=== PATIENT | male | born 1995 | race Caucasian/White ===

== ENCOUNTER 2019-08-05 06:45 | Day surgery (SDC) | payer OTHER, MEDICAID ==
[~2019-08-05] VITALS: Ht 172.7 cm; Wt 125.4 kg
[~2019-08-05 06:45] MED LIST: RINGERS SOLUTION,LACTATED 1,000 ML IV ONE
[2019-08-05] MEDS ORDERED: RINGERS SOLUTION,LACTATED 1,000 ML IV ONE ×2 (06:46→09:42)
[2019-08-05 08:46] LABS: BASOPHILS % (AUTO) 0.4 % (0.0-2.0); EOSINOPHILS % (AUTO) 2.9 % (1.0-6.0); HEMATOCRIT 49.3 % (41-53); HEMOGLOBIN 16.7 g/dL (13.5-17.5); LYMPHOCYTES # (AUTO) 4.1 K/uL (1.0-4.8); LYMPHOCYTES % (AUTO) 35.3 % (22.0-44.0); MEAN CORPUSCULAR HEMOGLOBIN 27.9 pg (26.0-34.0); MEAN CORPUSCULAR HGB CONC 33.9 G/dL (31.0-37.0); MEAN CORPUSCULAR VOLUME 82 fL (80-100); MONOCYTES # (AUTO) 1.1 K/uL (0.1-1.0); MONOCYTES % (AUTO) 9.2 % (2.0-9.0); NEUTROPHILS # (AUTO) 6.1 K/uL (1.8-7.7); NEUTROPHILS % (AUTO) 52.2 % (40.0-70.0); PLATELET COUNT (AUTO) 258 K/uL (150-450); RED CELL DISTRIBUTION WIDTH 13.7 % (11.5-14.5)
[2019-08-05 08:53] LABS: PROTHROMBIN TIME 10.2 SEC (9.4-11.6)
[2019-08-05 09:00] LABS: ANION GAP 14 mmol/L (8-16); CALCIUM, TOTAL 9.9 mg/dL (8.8-10.5); CARBON DIOXIDE 25 mmol/L (22-29); CHLORIDE 101 mmol/L (98-107); CREATININE 1.03 mg/dL (0.60-1.30); GLOMERULAR FILTR. RATE CALC > 60 mL/min (>60); GLUCOSE,RANDOM 169 mg/dL (70-110); POTASSIUM 3.2 mmol/L (3.5-5.1); SODIUM SERUM 140 mmol/L (136-145); UREA NITROGEN, BLOOD 12 mg/dL (7-18)
[2019-08-05 09:04] LABS: ALANINE AMINOTRANSFERASE 105 U/L (12-78); ALBUMIN 4.7 g/dL (3.4-5.0); ALKALINE PHOSPHATASE 63 U/L (46-116); ASPARTATE AMINOTRANSFERASE 50 U/L (15-37); BILIRUBIN,TOTAL 1.4 mg/dL (0.1-1.0)
[2019-08-05] MEDS ORDERED: AMPICILLIN SODIUM 1 GM/VIAL ONE ×2 (09:06)
[2019-08-05] MEDS ORDERED: HYDROmorphone 2 MG/ML SYRINGE IVP PRN (09:45)
[2019-08-05] MEDS ORDERED: MEPERIDINE-PF 25 MG/ML VIAL IVP PRN (09:45)
[2019-08-05] MEDS ORDERED: FentaNYL CITRATE-PF 100 MCG/2 ML VIAL IVP PRN (09:45)
[2019-08-05] MEDS ORDERED: GLYCOPYRROLATE 0.2 MG/ML VIAL IM ONE (12:00)
[2019-08-05] MEDS ORDERED: DEXAMETHASONE SOD PHOS 4 MG/ML VIAL IVP ONE (12:00)
[2019-08-05] MEDS ORDERED: METOCLOPRAMIDE HCL 5 MG/ML 2 ML VIAL IVP ONE (12:00)
[2019-08-05] MEDS ORDERED: ONDANSETRON HCL 4 MG/2 ML VIAL IVP ONE (12:00)
[2019-08-05] MEDS ORDERED: NEOSTIGMINE METHYLSULFATE 1 MG/ML 10 ML VIAL IVP ONE (12:00)
[2019-08-05] MEDS ORDERED: PROPOFOL 1% 20 ML VIAL IVP ONE (12:00)
[2019-08-05] MEDS ORDERED: KETAMINE HCL 50 MG/ML 10 ML VIAL IVP ONE (12:00)
[2019-08-05] MEDS ORDERED: FentaNYL CITRATE-PF 100 MCG/2 ML VIAL IVP ONE (12:00)
[2019-08-05] MEDS ORDERED: MIDAZOLAM HCL 2 MG/2 ML VIAL IVP ONE (12:00)
[2019-08-05] MEDS ORDERED: ROCURONIUM BROMIDE 10 MG/ML 5 ML VIAL IVP ONE (12:00)
[2019-08-05] MEDS ORDERED: OXYGEN THERAPY IH SCH (20:00)
== END 2019-08-05 12:05 | disposition home or self-care (01) ==
LOC: SURGERY 06:45
PROVIDERS: ATTEND Dentist General Practice
DX: K05.30 Chronic periodontitis, unspecified (principal); K03.6 Deposits [accretions] on teeth; E66.9 Obesity, unspecified; F79 Unspecified intellectual disabilities; F84.0 Autistic disorder; F99 Mental disorder, not otherwise specified; Z79.899 Other long term (current) drug therapy; Z98.890 Other specified postprocedural states
CPT/HCPCS: 36415; 41899; 71045; 80053; 85025; 85610; 85730; 93005; J0290; J1100; J2250; J2405; J2704; J2765; J3010; J3490 ×3; J7120

== ENCOUNTER 2022-12-26 06:06 | Day surgery (SDC) | payer OTHER ==
[~2022-12-26] VITALS: Ht 172.7 cm; Wt 125.4 kg
[2022-12-26] MEDS ORDERED: FentaNYL CITRATE PF 100 MCG/2 ML VIAL IVP ONE (06:07)
[2022-12-26] MEDS ORDERED: DEXAMETHASONE SOD PHOS 4 MG/ML VIAL IVP ONE (06:07)
[2022-12-26] MEDS ORDERED: MIDAZOLAM HCL 2 MG/2 ML VIAL IVP ONE (06:07)
[2022-12-26] MEDS ORDERED: ONDANSETRON HCL 4 MG/2 ML VIAL IVP ONE (06:07)
[2022-12-26] MEDS ORDERED: ROCURONIUM BROMIDE 10 MG/ML 5 ML VIAL IVP ONE (06:07)
[2022-12-26] MEDS ORDERED: PROPOFOL 1% 20 ML VIAL IVP ONE (06:07)
[2022-12-26] MEDS ORDERED: LIDOCAINE/PF 2% 5 ML VIAL IM ONE (06:07)
[2022-12-26] MEDS ORDERED: RINGERS SOLUTION,LACTATED 1,000 ML IV ONE ×2 (06:30→07:30)
[2022-12-26 06:52] LABS: COVID AG,FIA SOURCE NASAL SWAB
[2022-12-26] MEDS ORDERED: AMPICILLIN SODIUM 2 GM/NS 100 ML IV ONE (07:51)
[2022-12-26 07:54] LABS: BASOPHILS % (AUTO) 0.5 % (0.0-2.0); EOSINOPHILS % (AUTO) 2.2 % (1.0-6.0); HEMATOCRIT 43.9 % (41-53); HEMOGLOBIN 15.3 g/dL (13.5-17.5); LYMPHOCYTES # (AUTO) 1.9 K/uL (1.0-4.8); LYMPHOCYTES % (AUTO) 29.3 % (22.0-44.0); MEAN CORPUSCULAR HEMOGLOBIN 28.4 pg (26.0-34.0); MEAN CORPUSCULAR HGB CONC 34.9 G/dL (31.0-37.0); MEAN CORPUSCULAR VOLUME 81 fL (80-100); MONOCYTES # (AUTO) 0.7 K/uL (0.1-1.0); MONOCYTES % (AUTO) 9.8 % (2.0-9.0); NEUTROPHILS # (AUTO) 3.9 K/uL (1.8-7.7); NEUTROPHILS % (AUTO) 58.2 % (40.0-70.0); PLATELET COUNT (AUTO) 158 K/uL (150-450); RED CELL DISTRIBUTION WIDTH 13.7 % (11.5-14.5)
[2022-12-26 08:06] LABS: PROTHROMBIN TIME 10.9 SEC (9.4-11.6)
[2022-12-26 08:07] LABS: ANION GAP 8 mmol/L (8-16); CALCIUM, TOTAL 8.6 mg/dL (8.8-10.5); CARBON DIOXIDE 26 mmol/L (22-29); CHLORIDE 102 mmol/L (98-107); CREATININE 0.81 mg/dL (0.60-1.30); GLOMERULAR FILTR. RATE CALC > 60 mL/min (>60); GLUCOSE,RANDOM 105 mg/dL (70-110); POTASSIUM 4.2 mmol/L (3.5-5.1); SODIUM SERUM 136 mmol/L (136-145); UREA NITROGEN, BLOOD 10 mg/dL (7-18)
[2022-12-26 08:15] LABS: ALANINE AMINOTRANSFERASE 59 U/L (12-78); ALBUMIN 3.9 g/dL (3.4-5.0); ALKALINE PHOSPHATASE 59 U/L (46-116); ASPARTATE AMINOTRANSFERASE 22 U/L (15-37); BILIRUBIN,TOTAL 0.8 mg/dL (0.1-1.0); TOTAL PROTEIN, SERUM 6.9 g/dL (6.4-8.2)
[2022-12-26] MEDS ORDERED: SUGAMMADEX SODIUM 200 MG/2 ML VIAL IVP ONE (10:55)
[2022-12-26] MEDS ORDERED: ROCURONIUM BROMIDE 10 MG/ML 5 ML VIAL ONE (10:55)
[2022-12-26] MEDS ORDERED: DEXAMETHASONE SOD PHOS 4 MG/ML VIAL ONE (10:55)
== END 2022-12-26 12:25 | disposition home or self-care (01) ==
LOC: SURGERY 06:06
PROVIDERS: ATTEND Dentist General Practice
DX: K05.30 Chronic periodontitis, unspecified (principal); K02.9 Dental caries, unspecified; Z79.01 Long term (current) use of anticoagulants; Z79.899 Other long term (current) drug therapy; Z98.890 Other specified postprocedural states; Z20.822 Contact with and (suspected) exposure to COVID-19; R61 Generalized hyperhidrosis; E66.9 Obesity, unspecified
CPT/HCPCS: 41899; 71045; 87426; 80053; 85025; 85610; 85730; 36415; 93005; J0290; J2704; J1100; J3010; J3490 ×2; J2250; J2405; Q9967; J7120; C9803

== ENCOUNTER → 2025-07-07 | Day surgery (SDC) | payer OTHER ==
[~2025-07-07] VITALS: Ht 172.7 cm; Wt 118.2 kg
[~2025-07-07] MED LIST changes: +AMPICILLIN SODIUM 2 GM/NS 100 ML IV ONE; +DEXAMETHASONE SOD PHOS 4 MG/ML VIAL ONE; +LIDOCAINE/PF 2% 5 ML VIAL ONE; +ONDANSETRON HCL 4 MG/2 ML VIAL ONE; +PROPOFOL 1% 20 ML VIAL IVP ONE; +ROCURONIUM BROMIDE 10 MG/ML 5 ML VIAL ONE; +SUGAMMADEX SODIUM 200 MG/2 ML VIAL IVP ONE
[2025-07-07 07:27] LABS: PLATELET COUNT (AUTO) 175 K/uL (150-450); RED BLOOD CELL COUNT(AUTO) 5.61 MIL/uL (4.50-5.90); RED CELL DISTRIBUTION WIDTH 13.9 % (11.5-14.5); WHITE BLOOD COUNT (AUTO) 10.4 K/uL (4.5-11.0)
[2025-07-07 07:40] LABS: CALCIUM, TOTAL 8.8 mg/dL (8.8-10.5); CREATININE 0.89 mg/dL (0.60-1.30); GLOMERULAR FILTR. RATE CALC > 60 mL/min (>60); GLUCOSE,RANDOM 99 mg/dL (70-110); SODIUM SERUM 138 mmol/L (136-145); UREA NITROGEN, BLOOD 10 mg/dL (7-18)
[2025-07-07 07:44] LABS: ASPARTATE AMINOTRANSFERASE 24 U/L (15-37); TOTAL PROTEIN, SERUM 7.0 g/dL (6.4-8.2)
[2025-07-07] MEDS: RINGERS SOLUTION,LACTATED 1,000 ML IV ONE (11:32)
== END | disposition still patient (30) ==
LOC: SDS 06:39
PROVIDERS: ATTEND Dentist General Practice
DX: K02.9 Dental caries, unspecified (principal); K05.30 Chronic periodontitis, unspecified; Z79.899 Other long term (current) drug therapy; Z98.890 Other specified postprocedural states; Z79.01 Long term (current) use of anticoagulants; I49.1 Atrial premature depolarization
CPT/HCPCS: 41899; 71045; 80053; 85025; 85610; 85730; 36415; 93005; J0290; J2704; J1100; J3490 ×3; J2405; J7120